=== PATIENT | female | born 1955 | race Caucasian/White ===

== ENCOUNTER 2022-06-11 13:19 | Outpatient (CLI) | payer MEDICARE, BC, SELFPAY ==
[2022-06-11 17:21] LABS: Chloride* 106 mmol/L (96-114); Potassium* 4.1 mmol/L (3.6-5.1); Sodium* 140 mmol/L (135-149)
[2022-06-11 17:24] LABS: Blood Urea Nitrogen* 15 mg/dL (7-30); Carbon Dioxide* 27 mmol/L (20-32); Creatinine* 0.9 mg/dL (0.5-1.5); Estimated Glomerular Filt Rate 69 ml/min
[2022-06-11 17:25] LABS: Calcium* 9.2 mg/dL (8.4-10.6); Glucose* 91 mg/dL (60-115)
== END 2022-06-11 13:20 | disposition home or self-care (01) ==
PROVIDERS: PCP Family Medicine; Visit Provider Family Medicine
DX: E03.9 Hypothyroidism, unspecified (principal); I10 Essential (primary) hypertension; E66.9 Obesity, unspecified
CPT/HCPCS: 80048; 84443

== ENCOUNTER 2023-06-15 10:13 | Outpatient (CLI) | payer MEDICARE, BC, SELFPAY | END 2023-06-15 10:14 | disposition home or self-care (01) | PROVIDERS: PCP Family Medicine; Visit Provider Family Medicine | DX: I10 Essential (primary) hypertension (principal); E03.9 Hypothyroidism, unspecified; Z13.6 Encounter for screening for cardiovascular disorders | CPT/HCPCS: 80048; 80061; 84443 ==